=== PATIENT | male | born 1940 | race Caucasian/White ===

== ENCOUNTER 2016-08-09 11:36 | Inpatient (IN) ==
--- NOTE | 2016-08-09 12:03 | EKG Report ---
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
[2016-08-09 12:25] LABS: Basophils % 0.2 % (0.0-0.8); Eosinophils % 0.5 % (0.00-10.9); Hematocrit 42.3 VOL% (42.0-52.0); Hemoglobin 14.2 GM/DL (14.0-18.0); Immature Granulocytes % 0.2 %; Immature Granulocytes Absolute 0.02 #; Lymphocytes # 1.4 10*3/uL (1.4-4.0); Lymphocytes % 16.1 % (21.2-54.2); Mean Corpuscular HGB Conc 33.6 GM/DL (32-36); Mean Corpuscular Hemoglobin 31 PG (27-34); Mean Corpuscular Volume 90.8 FL (87-102); Mean Platelet Volume 9.7 FL (9.6-12.0); Monocytes # 0.7 10*3/uL (0.11-0.8); Neutrophils # 6.6 10*3/uL (1.4-7.4); Platelet Count 278 T/CUMM (130-400); Red Blood Count 4.66 MC/CUMM (3.8-5.5); Red Cell Distribution Width 12.7 % (9.3-17.3); White Blood Count 8.8 T/CUMM (4-12)
--- NOTE | 2016-08-09 12:38 | XRay Report ---
XR chest 2V Indication: Shortness of breath. Chest 2 views: Right shoulder hemiarthroplasty and scattered calcified granulomata are present. Heart size and mediastinal contour are normal. Lungs are hypoinflated but generally clear, except for minimal bibasilar atelectasis. Pleural spaces are clear. Bones are intact. Impression: Mild pulmonary hypoinflation with atelectasis. PROCEDURE INTERPRETED AT [facility] DEPARTMENT OF RADIOLOGY Final Report Signed by: Jose Kelly M.D.
[2016-08-09 13:00] LABS: Alanine Aminotransferase 14 U/L (16-61); Alkaline Phosphatase 58 U/L (45-117); Aspartate Amino Transferase 12 U/L (0-37); Blood Urea Nitrogen 52 MG/DL (7-18); Calcium 9.1 MG/DL (8.5-10.1); Glucose 98 MG/DL (74-106); Magnesium 1.9 MG/DL (1.8-2.4); Osmolality,Calculated 292.4 MOS/KG (273-304); Sodium 140 MMOL/L (136-145); Total Protein 7.5 G/DL (6.4-8.3); Troponin I Only < 0.015 NG/ML (0.00-0.045)
--- NOTE | 2016-08-09 13:36 | Emergency Department Note ---
Bao Shepherd Hilary, am scribing for, and in the presence of, Kishor Kang MD 12:02. Pearl Shepherd Phillip K, MD, personally performed the services described in this documentation, ascribed by Xuan Gore in my presence, and it is both accurate and complete [id number] . Arrival - Arrival Chief Complaint: Syncope Stated Complaint: poss [facility] ED Nursing Triage Note: Pt states that he is having chest pain onset near syncope onset approx 1030 - Mode of Arrival: Ambulatory Limitations: No Limitations Source: Patient, RN Notes Reviewed - History of Present Illness HPI Narrative: Pt is a 76 y/o white male presenting to the ED with c/o diaphoresis and near syncope which onset around 1030 today. 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 He confirms near syncope, and diaphoresis but denies SOB, Nausea or tightness in his chest. Pt also reports that he has chronic shoulder pain and for the past 3-4 days the pain has been radiating to his neck. Pt has a PMHx of HTN. Onset (ago): hour(s) Allergies/Adverse Reactions: Allergies Allergy/AdvReac Type Severity Reaction Status Date / Time No Known Allergies Allergy Unverified 08/09/16 11:41 Home Medications: Home Medications Medication Instructions Recorded Confirmed Type Allopurinol 300 mg PO DAILY 08/09/16 08/09/16 History Hydrocodone/Acetaminophen 1 each PO TID PRN MDD 3GM/24H APAP 08/09/16 08/09/16 History [Hydrocodon-Acetaminophn 10-325] Lisinopril 20 mg PO DAILY 08/09/16 08/09/16 History Omeprazole 20 mg PO DAILY 08/09/16 08/09/16 History Sulindac 200 mg PO BID 08/09/16 08/09/16 History Review of System - Review of System 12 point system: reviewed and no additional remarkable complaints except as stated - Review of System Constitutional: Present: diaphoresis, weakness. Absent: fever Respiratory: Absent: respiratory distress Cardiovascular: Present: syncope (near syncope). Absent: chest pain Gastrointestinal: Absent: nausea Musculoskeletal: Present: neck pain (secondary to shoulder pain (old injury)) Medical,Surgical,& Family Hx - Medical History Cardio: History of: Hypertension Rheumatology: History of;: Gout - Social History Smoking Status: Never smoker Frequency of Alcohol Use: None Type of Drug Use: None Exam Vital Signs: Vital Signs Temperature 97.1 F L 08/09/16 11:41 Pulse Rate 114 H 08/09/16 11:41 Respiratory Rate 20 08/09/16 11:41 Blood Pressure 131/99 08/09/16 11:41 O2 Sat by Pulse Oximetry 95 08/09/16 11:41 - General General appearance: alert, in no apparent distress - Head Head exam: Present: atraumatic, normocephalic - Eye Eye exam: Present: normal appearance, PERRL, EOMI - ENT ENT exam: Present: mucous membranes moist, TM's normal bilaterally. Absent: mucous membranes dry - Neck Neck exam: Present: full ROM, trachea midline. Absent: tenderness - Chest Chest inspection: Present: symmetric chest wall rise. Absent: tenderness - Respiratory Respiratory exam: Present: normal lung sounds bilaterally. Absent: respiratory distress - Cardiovascular Cardiovascular exam: Present: normal rhythm, tachycardia, normal heart sounds. Absent: murmur, rubs, gallop - Abdominal Exam Abdominal exam: Present: soft. Absent: distention, tenderness - Extremities Exam Extremities exam: Present: full ROM. Absent: tenderness, pedal edema - Back Exam Back exam: Present: full ROM. Absent: tenderness - Neurological Exam Neurological exam: Present: alert, oriented X3, CN II-XII intact. Absent: motor sensory deficit - Psychiatric Psychiatric exam: Present: normal affect, normal mood - Skin Skin exam: Present: warm, dry, intact, normal color. Absent: rash Course Course Narrative: Patient initially denied chest pain pressure or tightness however when he arrived she said he had a bad case of indigestion while this episode happened. On reexamination the patient does have some pain in the left anterior chest that he reports. We will give him a nitroglycerin sublingual, aspirin and Lovenox. We will also admit him for further evaluation of his heart. Results - Labs CBC & BMP: 08/09/16 12:09 08/09/16 12:09 Lab Results: I have reviewed the patients labs Labs: Laboratory Tests 08/09/16 12:09 WBC 8.8 RBC 4.66 Hgb 14.2 Hct 42.3 Neut % (Auto) 75.0 H Lymph % (Auto) 16.1 L - EKG EKG results: interpreted by ERMManuela (Sinus tachycardia) - Diagnostic Findings Procedure: Chest x-ray: report reviewed by me (Mild pulmonary hypoinflation with atelectasis) Disposition Clinical Impression: Near syncope, Dehydration, Chest pain, Rule out angina Case discussed with: patient Disposition: Still a Patient Condition: Guarded Additional Instructions: Admit to the hospitalist and consult cardiology.
[2016-08-09] MEDS ORDERED: NITROGLYCERIN SL 0.4 MG TABLET SL ONE ×2 (13:41→14:09)
[2016-08-09] MEDS ORDERED: ENOXAPARIN 100 MG/ML SYRINGE SUBCUT ONE ×2 (13:42→14:09)
[2016-08-09] MEDS ORDERED: ASPIRIN 325 MG TABLET ONE (13:42)
[2016-08-09] MEDS ORDERED: ONDANSETRON 4 MG/2 ML VIAL ONE (13:52)
[2016-08-09] MEDS ORDERED: ASPIRIN CHEW 81 MG TABLET PO ONE (14:09)
[2016-08-09] MEDS ORDERED: SODIUM CHLORIDE 0.9% 1,000 ML IV ONE (14:09)
[2016-08-09] MEDS ORDERED: ONDANSETRON 4 MG/2 ML VIAL IV ONE (14:09)
--- NOTE | 2016-08-09 14:55 | Hospitalist History & Physical ---
<Amor Hand - Last Filed: 08/09/16 16:08> Assessment and Plan - Time spent with patient Time spent with patient: Greater than 30 minutes (1) Near syncope Status: Acute Assessment and plan: Carotid Dopplers, echocardiogram, chest x-ray and EKG, cardiology consult. Repeat CBC and BMP. Current Visit: Yes (2) Dehydration Status: Acute Assessment and plan: Patient given 500 mg of normal saline in the ER. BUN/creatinine ratio 43. Will continue to hydrate and monitor BMP and BP. Current Visit: Yes (3) Chest pain Status: Acute Assessment and plan: Patient complained of "gnawing" chest pain while examined today. After 1 nitroglycerin tablet pain subsided. Patient will be admitted for further evaluation and treatment. Consult cardiology for possible stress test left heart cath. Current Visit: Yes (4) Hypertension Status: Acute Assessment and plan: Well-controlled on home meds. Continue to monitor Current Visit: Yes History of Present Illness Chief complaint: chest pain, near syncope, dehydration History of present illness: Mr. Ruelas is a 76 year old male past medical history significant for hypertension , gout and prostate cancer who presents to the emergency room with complaints of diaphoresis and near syncope at around 1030 this morning. 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 He also states that he "nearly passed out" but never lost consciousness. On admission, the patient' s exam was unremarkable, cardiac enzymes negative and initial EKG was unremarkable. On exam, patient did complain of a "gnawing" pain in his left chest. He was then given 0.4 mg of nitroglycerin and the pain subsided. However, the patient did become nauseated, spat up dark red emesis and became extremely diaphoretic. Repeat EKG revealed an abnormal rhythm with possible right bundle branch block. Chest x-ray revealed minimal bibasilar atelectasis. Case been discussed with Dr. Kang and Dr. Loco and is in agreement that the patient will be admitted to the hospital medicine service for further evaluation and treatment. We will consult cardiology for possible stress test or left heart cath. The patient is a full code. Home Medications Medication Instructions Recorded Confirmed Type Allopurinol 300 mg PO DAILY 08/09/16 08/09/16 History Hydrocodone/Acetaminophen 1 each PO TID PRN MDD 3GM/24H APAP 08/09/16 08/09/16 History [Hydrocodon-Acetaminophn 10-325] Lisinopril 20 mg PO DAILY 08/09/16 08/09/16 History Omeprazole 20 mg PO DAILY 08/09/16 08/09/16 History Sulindac 200 mg PO BID 08/09/16 08/09/16 History Allergies Allergy/AdvReac Type Severity Reaction Status Date / Time No Known Allergies Allergy Unverified 08/09/16 11:41 Medical,Surgical,& Family Hx - Medical History Cardio: History of: Hypertension Rheumatology: History of;: Gout - Social History Smoking Status: Never smoker Frequency of Alcohol Use: None Type of Drug Use: None - Constitutional Constitutional: Absent: chills, frequent falls, headache(s), weakness - EENT Eyes: Absent: blurry vision, loss of vision - Cardiovascular Cardiovascular: Present: chest pain at rest, diaphoresis. Absent: edema, radiating jaw, neck or arm pain, palpitations - Respiratory Respiratory: Absent: cough, hemoptysis, wheezing - Gastrointestinal Gastrointestinal: Present: change in bowel habits, loose stools, melena, nausea , vomiting. Absent: abdominal pain - Genitourinary Genitourinary: Absent: difficulty urinating, dysuria, flank pain - Musculoskeletal Musculoskeletal: Present: arthralgias, other (Chronic shoulder pain). Absent: back pain - Neurological Neurological: Present: other (Near syncope). Absent: abnormal gait, abnormal speech, confusion, paresthesias - Psychiatric Psychiatric: Absent: anxiety, depression - Endocrine Endocrine: Absent: cold intolerance, fatigue, heat intolerance - Hematologic/Lymphatic Hematologic/Lymphatic: Absent: easy bleeding, easy bruising Exam - Constitutional Exam: General appearance: Over weight, mild distress - Head Head exam: Present: normocephalic, atraumatic - Eye Eye exam: Present: EOMI. Absent: conjunctival injection, nystagmus Pupils: Present: FLACA, normal accommodation - ENT ENT exam: Present: normal exam, normal external ear exam - Neck Neck exam: Present: normal inspection. Absent: lymphadenopathy, tenderness, thyromegaly - Respiratory Respiratory exam: Present: clear to auscultation bilaterally. Absent: rales, rhonchi, wheezes - Cardiovascular Cardiovascular exam: Present: regular rate and rhythm. Absent: carotid bruit, gallop, rubs - GI/Abdominal GI/Abdominal exam: Present: normal bowel sounds. Absent: ascites, distended, mass - Extremities Exam Extremities exam: Present: normal inspection, normal capillary refill. Absent: edema - Back Exam Back exam: Absent: CVA tenderness (L), CVA tenderness (R) - Neurological Exam Neurological exam: Present: alert, oriented X3 - Psychiatric Psychiatric exam: Present: normal affect, normal mood - Skin Skin exam: Present: normal color, cool, diaphoretic Results - Labs CBC & BMP: 08/09/16 12:09 08/09/16 12:09 Lab Results: I have reviewed the past 24 hour labs - EKG EKG results: interpreted by BRIAN - Diagnostic Findings Procedure: Chest x-ray: image reviewed by me, report reviewed by me <Martin Loco - Last Filed: 08/09/16 20:33> Assessment and Plan - Time spent with patient Time spent with patient: Greater than 30 minutes (1) Upper gastrointestinal bleeding Status: Acute Assessment and plan: Consult GI. IV twice daily PPI. Repeat CBC in a.m. Guaiac stool. Current Visit: Yes (2) Near syncope Status: Acute Assessment and plan: Carotid ultrasound unremarkable. Check echo. Cardiology consult. Repeat a.m. labs. Hydrate with normal saline. Current Visit: Yes (3) Dehydration Status: Acute Current Visit: Yes (4) Chest pain Status: Acute Current Visit: Yes (5) Hypertension Status: Acute Assessment and plan: Continue home medications and add hydralazine as needed Current Visit: Yes Qualifiers: Hypertension type: essential hypertension Qualified Code(s): I10 - Essential (primary) hypertension History of Present Illness History of present illness: Mr. Ruelas is a 76 year old male presents to emergency department with near syncope and diaphoresis with accompanying left-sided chest pain. Patient gives a history of dark tarry stools over the last 24 hours 2-3 episodes. He also had an episode of bloody emesis in the emergency department. His BUN is elevated and he appears volume depleted. I feel the patient has an upper gastrointestinal bleed and will need GI evaluation. I have reduced his aspirin dose to 81 mg and started IV twice daily Protonix. Fluid resuscitation has been started and a repeat CBC has been ordered in the morning. I will consult Dr. Munoz and to hold the patient n.p.o. after midnight. I have personally seen and examined this patient today. I agree with the above note as prepared by the advanced practice provider. I agree with the assessment and plan. The patient was seen and examined in room 268 with his daughter at the bedside. I explained the differential diagnosis and workup plan. They verbalized their understanding and agreed to move forward. The patient's home medications were reviewed and reconciled. He is a full code. His daughter is his primary healthcare proxy. Medical,Surgical,& Family Hx - Medical History Genitourinary: History of: Prostate Problems (History of prostate cancer) - Surgical History Orthopedic Surgeries: Surgical HX of;: Orthopedic Surgery (Right shoulder surgery) - Family History Family History: Reports;: Family Hypertension - Social History Smoking Status: Never smoker Frequency of Alcohol Use: None Type of Drug Use: None Marital Status: Lives With:: Alone Functional capacity: independent ambulation 12 point system: reviewed and no additional remarkable complaints except as stated Exam - Constitutional Vitals: Period Temp Pulse Resp BP Sys/[place]illo Pulse Ox Last 24 Hr 96.2 F-98.4 F 91-115 16-20 131-187/81-99 97 Results - Labs CBC & BMP: 08/09/16 12:09 08/09/16 12:09 Lab Results: I have reviewed the past 24 hour labs
[2016-08-09] MEDS ORDERED: MORPHINE 2 MG/1 ML SYRINGE IV PRN (16:08)
[2016-08-09] MEDS ORDERED: ZALEPLON 5 MG CAPSULE PO PRN (16:08)
[2016-08-09] MEDS ORDERED: ONDANSETRON 4 MG/2 ML VIAL IV PRN (16:08)
[2016-08-09] MEDS ORDERED: MAGNESIUM SULF RIDER 2 GM in PREMIX 1 EACH IV PRN (16:08)
[2016-08-09] MEDS ORDERED: NITROGLYCERIN SL 0.4 MG TABLET SL PRN (16:08)
--- NOTE | 2016-08-09 16:18 | EKG Report ---
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
--- NOTE | 2016-08-09 16:28 | EKG Report ---
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
[2016-08-09] MEDS ORDERED: ASPIRIN EC 325 MG TABLET PO SCH (16:30)
[2016-08-09] MEDS ORDERED: ENOXAPARIN 40 MG/0.4 ML SYRINGE SUBCUT SCH (16:30)
[2016-08-09] MEDS ORDERED: hydrALAZINE 20 MG/1 ML VIAL IV ONE (16:45)
--- NOTE | 2016-08-09 17:14 | Ultrasound Report ---
Referring physician: Martin Loco Exam: Carotid ultrasound Date: August 09, 2016 Comparison: None Reason: Near syncope Technique: Duplex scan of the carotid arteries was performed using B-Mode/grayscale imaging and Doppler spectral analysis and color flow. Ultrasound images were captured and stored. Findings: There is mild calcified plaque at the carotid bifurcations and proximal cervical ICAs. The right ICA measures 0.59 cm in diameter, and the left ICA measures 0.58 cm in diameter. The peak systolic velocities are as follows: Right CCA: 78 cm/s Right proximal ICA: 57 cm/s Right distal ICA: 64 cm/s Right ECA: 51 cm/s Left CCA: 69 cm/s Left proximal ICA: 63 cm/s Left distal ICA: 65 cm/s Left ECA: 98 cm/s The peak systolic ICA/CCA velocity ratios are as follows: 0.8 on the right and 0.9 on the left. Antegrade flow is present within both vertebral arteries. Impression: 1. Less than 50% stenosis of both cervical internal carotid arteries. 2. The Society of Radiologists in Ultrasound consensus conference criteria was used. PROCEDURE INTERPRETED AT [facility] DEPARTMENT OF RADIOLOGY Final Report Signed by: Dr. Naseem Chiang
[2016-08-09 17:30] LABS: Risk Ratio 5.46; VLDL CHOLESTEROL 27.8 MG/DL
[2016-08-09] MEDS: ACETAMINOPHEN 325 MG TABLET PO PRN (18:33)
[2016-08-09] MEDS ORDERED: ALUM/MAG/SIMETH/LIDO VISC 1:1 30 ML BOTTLE PO PRN (20:25)
[2016-08-09] MEDS ORDERED: hydrALAZINE 20 MG/1 ML VIAL IV PRN (20:27)
[2016-08-09] MEDS ORDERED: SODIUM CHLORIDE 0.9% 250 ML IV ONE (20:28)
[2016-08-09] MEDS ORDERED: SODIUM CHLORIDE 0.9% 1,000 ML IV SCH (20:30)
[2016-08-09] MEDS: PANTOPRAZOLE 40 MG VIAL IV SCH (21:26)
[2016-08-10 06:02] LABS: Basophils % 0.3 % (0.0-0.8); Eosinophils % 0.5 % (0.00-10.9); Hemoglobin 11.5 GM/DL (14.0-18.0); Immature Granulocytes % 0.3 %; Immature Granulocytes Absolute 0.02 #; Lymphocytes # 1.6 10*3/uL (1.4-4.0); Lymphocytes % 21.3 % (21.2-54.2); Mean Corpuscular HGB Conc 33.8 GM/DL (32-36); Mean Corpuscular Hemoglobin 30 PG (27-34); Mean Corpuscular Volume 89.5 FL (87-102); Mean Platelet Volume 10.1 FL (9.6-12.0); Monocytes # 0.5 10*3/uL (0.11-0.8); Monocytes % 7.1 % (1.7-12.7); Neutrophils # 5.4 10*3/uL (1.4-7.4); Neutrophils % 70.5 % (38.7-73.9); Platelet Count 225 T/CUMM (130-400); White Blood Count 7.6 T/CUMM (4-12)
[2016-08-10 06:28] LABS: Magnesium 1.9 MG/DL (1.8-2.4); Osmolality,Calculated 287.3 MOS/KG (273-304); Potassium 4.4 MMOL/L (3.5-5.1)
--- NOTE | 2016-08-10 08:40 | Cardiology Consult Note ---
<Miguelina Matt E - Last Filed: 08/10/16 08:47> Assessment and Plan - Time spent with patient Time spent with patient: Greater than 30 minutes (1) Dyslipidemia Status: Chronic Assessment and plan: SEE PLAN OF CARE LISTED BELOW Current Visit: Yes (2) Sinus tachycardia Status: Acute Assessment and plan: SEE PLAN OF CARE LISTED BELOW Current Visit: Yes (3) Obesity Status: Chronic Assessment and plan: SEE PLAN OF CARE LISTED BELOW Current Visit: Yes (4) Chest pain Status: Resolved Assessment and plan: SEE PLAN OF CARE LISTED BELOW Current Visit: Yes (5) Hypertension Status: Chronic Assessment and plan: SEE PLAN OF CARE LISTED BELOW Current Visit: Yes Qualifiers: Hypertension type: essential hypertension Qualified Code(s): I10 - Essential (primary) hypertension (6) Near syncope Status: Resolved Assessment and plan: SEE PLAN OF CARE LISTED BELOW Current Visit: Yes (7) Upper gastrointestinal bleeding Status: Acute Assessment and plan: SEE PLAN OF CARE LISTED BELOW Current Visit: Yes History of Present Illness - Data of Consult Patient: new to practice Consult date: 08/10/16 Requesting Physician: Martin Loco - Consult Narrative Reason for consult: chest pain, pre-syncope History of present illness: DECKHAND: DR. MEYER Mr. Ruelas, 76WM, previously followed by Dr. Meyer approximately 5 years ago when he underwent stress testing and echocardiogram and received favorable results. He did not require follow-up. Risk factors include hypertension, dyslipidemia, obesity. Patient presented to the emergency department at [facility] last evening after experiencing lightheadedness, fatigue and chest pain while lifting a heavy car. Upon arrival to the ER, he was given nitroglycerin, he became nauseated and vomited red blood. He was transitioned to our telemetry unit overnight. Cardiac biomarkers are negative. EKG is unremarkable. He is normally very active and can perform his activities without chest pain, heaviness or tightness. Patient acknowledges that he has been having a "gnawing" sensation located in the mid and right upper abdominal area for several days. In retrospect, patient has had black tarry stools for approximately 3 days prior to arrival. His hemoglobin and hematocrit have dropped a bit overnight. During the night, he did have right upper abdominal discomfort. After walking around, this improved. At this point, I will consult gastroenterology to see the patient and keep him n.p.o. I will also verify that he is on a proton pump inhibitor. Patient did not denies the use of NSAIDs, BC powders or Goody's. He has never had prior history of GI bleed that he is aware of. He is having some sinus tachycardia and will follow this during hospital stay. May benefit from of note, patient does have a history of intolerance to statin drugs. He was recently prescribed a statin medication which caused body aching. He recently saw a nurse practitioner in a primary care facility and a medication has been ordered through the [facility] which is not a statin drug and he is awaiting the arrival of this medication. Carotid ultrasounds revealed no evidence of significant stenosis. Chest x-ray is unrevealing. Hold his Lovenox and aspirin at this point. He has had some mild tachycardia. I will decrease his lisinopril from 20 mg orally daily to 10 mg orally daily and add low-dose beta blockade. ASSESSMENT/PLAN: 1. NEAR-SYNCOPE - occurred when bending over. Carotid ultrasound negative, no arrhythmia noted. We will continue monitor accordingly. 2. CHEST PAIN - chest pain occurred after he was lifting a car. Walking around and improved the discomfort. Stretching resolved the discomfort. 3. HYPERTENSION - will adjust medications for better blood pressure control. I will add an echocardiogram today since he is having some sinus tachycardia and will verify that he has no significant structural abnormality 4. DYSLIPIDEMIA - at this point, I am not going to introduce a lipid-lowering agent. He has a plan in place with his primary care provider and is awaiting a recently ordered medication I suspect to be Zetia, he reports statin intolerance. 5. OBESITY - dietary counseling prior to discharge 6. MELENA AND HEMATEMESIS - consult gastroenterology. I personally spoke with SOO Gillis, this morning. 7. SINUS TACHYCARDIA - low-dose beta blockade. CC: Martin Loco MD - Home Medications and Allergies Home Medications: Home Medications Medication Instructions Recorded Confirmed Type Allopurinol 300 mg PO DAILY 08/09/16 08/09/16 History Hydrocodone/Acetaminophen 1 each PO TID PRN MDD 3GM/24H APAP 08/09/16 08/09/16 History [Hydrocodon-Acetaminophn 10-325] Lisinopril 20 mg PO DAILY 08/09/16 08/09/16 History Omeprazole 20 mg PO DAILY 08/09/16 08/09/16 History Sulindac 200 mg PO BID 08/09/16 08/09/16 History Allergies/Adverse Reactions: Allergies Allergy/AdvReac Type Severity Reaction Status Date / Time No Known Allergies Allergy Unverified 08/09/16 11:41 Review of systems: REVIEW OF SYSTEMS: See HPI - Constitutional Constitutional: Present: Fatigue. Absent: syncope, anorexia, night sweats - EENT Eyes: Absent: blurry vision, loss of vision, diplopia Ears: Absent: decreased hearing, ear pain, ear discharge - Cardiovascular Cardiovascular: Present: chest pain with heavy lifting, improved with stretching. Denies dyspnea on exertion, edema, palpitations. Absent: chest pain with deep breath, claudication - Respiratory Respiratory: Denies: SHAY, cough. Absent: wheezing, hemoptysis, change in phlegm color - Gastrointestinal Gastrointestinal: Denies: constipation. See HPI. Recent hematemesis and melena. Gnawing sensation - Genitourinary Genitourinary: Absent: difficulty urinating, dysuria, urinary hesitancy, flank pain - Musculoskeletal Musculoskeletal: Present: back pain Absent: joint swelling, muscle cramps, muscle weakness - Neurological Neurological: Present: normal gait without frequent falls. Absent: dizziness, hemiparesis - Psychiatric Psychiatric: Absent: anxiety, depression, difficulty concentrating - Endocrine Endocrine: Present: fatigue. Absent: cold intolerance, heat intolerance, polyuria, polyphagia, polydipsia - Hematologic/Lymphatic Hematologic/Lymphatic: Present: easy bruising. Absent: easy bleeding -Integumentary Integumentary: Absent: lesions, rashes, skin breakdown Medical,Surgical,& Family Hx - Medical History Cardio: History of: Hypertension No history of: CAD, [place] Endocrine: History of: Dyslipidemia No history of: Diabetes Mellitus (NIDDM) Rheumatology: History of;: Gout, Rheumatoid Arthritis Genitourinary: History of: Kidney Stones (several years ago), Prostate Problems (History of prostate cancer) Musculoskeletal: History of: Musculoskeletal Problems (pt states he has back problems) - Surgical History Orthopedic Surgeries: Surgical HX of;: Orthopedic Surgery (Right shoulder surgery) - Family History Family History: Reports;: Family Hypertension Comment Only: Additional Family History (dad had open heart surgery) - Social History Smoking Status: Never smoker Have you smoked in the last 12 months: No Frequency of Alcohol Use: None Type of Drug Use: None Physical Examination Vital Signs Temp Pulse Resp BP Pulse Ox 97.1 F L 114 H 20 131/99 95 08/09/16 11:41 08/09/16 11:41 08/09/16 11:41 08/09/16 11:41 08/09/16 11:41 General: [Appears well with no apparent distress.] [Pleasant and cooperative. ] [Appears comfortable.] HEENT: [PERRL, normocephalic, atraumatic. Mucous membranes moist. No jaundice noted. Conjunctiva moist and clear, sclerae anicteric] Neck: No JVD/HJR, no thyromegaly or lymphadenopathy noted. No carotid bruit appreciated Cardiac: [Tachycardia rate, regular rhythm. ] [No murmur rub or gallop.] Lungs: [Clear to auscultation without accessory muscle use to assist the respiratory pattern.] Not requiring oxygen Abdomen: Soft, bowel sounds normoactive. Nontender and nondistended. No abdominal bruit or thrill noted. No masses noted. Musculoskeletal: No fluid collection. Decreased range of motion is noted. Extremities: No clubbing, cyanosis noted. [ No edema noted.] Upper extremity pulses 2+. Lower extremity pulses 2+. Capillary refill less than 3 seconds. Skin: No unusual lesions or rashes. No skin breakdown appreciated. Neuro: Awake, alert and oriented 3. Moves all extremities well without hemiparesis or paralysis. No essential tremor is appreciated. Result/EKG - Labs CBC & BMP: 08/10/16 04:47 08/10/16 04:47 Lab Results: I have reviewed the past 24 hour labs Labs: Laboratory Results - last 24 hr 08/09/16 08/09/16 08/09/16 16:29 16:29 19:22 WBC RBC Hgb Hct MCV MCH MCHC RDW Plt Count MPV Neut % (Auto) Lymph % (Auto) Pierce % (Auto) Eos % (Auto) Baso % (Auto) Neut # (Auto) Lymph # (Auto) Pierce # (Auto) Eos # (Auto) Baso # (Auto) Immature Gran % Nucleated RBC % Immature Gran # Nucleated RBCs # Sodium Potassium Chloride Carbon Dioxide Anion Gap BUN Creatinine GFR Calculation BUN/Creatinine Ratio Glucose Calculated Osmolality Calcium Magnesium Troponin I < 0.015 < 0.015 Triglycerides 139 Cholesterol 202 H LDL Cholesterol 134.0 VLDL Cholesterol 27.8 HDL Cholesterol 37 L Heart Disease Risk Ratio 5.46 08/09/16 08/10/16 08/10/16 22:00 04:47 04:47 WBC 7.6 RBC 3.80 Hgb 11.5 L D Hct 34.0 L MCV 89.5 MCH 30 MCHC 33.8 RDW 13.0 Plt Count 225 MPV 10.1 Neut % (Auto) 70.5 Lymph % (Auto) 21.3 Pierce % (Auto) 7.1 Eos % (Auto) 0.5 Baso % (Auto) 0.3 Neut # (Auto) 5.4 Lymph # (Auto) 1.6 Pierce # (Auto) 0.5 Eos # (Auto) 0.0 Baso # (Auto) 0.0 Immature Gran % 0.3 Nucleated RBC % 0.0 Immature Gran # 0.02 Nucleated RBCs # 0.00 Sodium 141 Potassium 4.4 Chloride 109 H Carbon Dioxide 24 Anion Gap 12.4 BUN 33 H D Creatinine 0.80 GFR Calculation 106 BUN/Creatinine Ratio 41.00 H Glucose 97 Calculated Osmolality 287.3 Calcium 8.0 L Magnesium 1.9 Troponin I < 0.015 Triglycerides Cholesterol LDL Cholesterol VLDL Cholesterol HDL Cholesterol Heart Disease Risk Ratio - Diagnostic Findings Procedure: Chest x-ray: report reviewed by me - EKG EKG results: interpreted by co EKG shows: tachycardia <Jose Wilson - Last Filed: 08/10/16 14:49> History of Present Illness - Consult Narrative History of present illness: Patient was personally interviewed and examined and chart reviewed. The family is in the room. Discussed the case with Miguelina aMtt NP. I agree with the assessment and evaluation and plan. Summation addition Mr. Ruelas is a 76 year old male who developed symptomatology after lifting on a car. His symptomatology of chest pain and sensations were certainly very noncardiac. His ECG stable without acute changes in his troponins are nondetectable 3. At the time of this dictation the patient is actually already had a EGD after having hematemesis. He was found to have peptic ulcer disease as the source of his bleeding. He apparently had 2 kissing ulcers in the greater curvature and lesser curvature of the distal antrum. He will be aggressively treated by GI. He had a postprocedure ECG curette was unremarkable. There is no acute changes. He was having just nonspecific complaints but no chest pain after his endoscopy. Certainly his symptomatology his findings are not consistent with a any kind of acute cardiac event and does not clinically or historically have ongoing cardiac disease at this time. Certainly his GI issues that are acute or being addressed and we need no further cardiac evaluation at this time. We will look in on the patient tomorrow but do not recommend any further evaluation at this time. CC: Martin Loco MD Physical Examination Vital Signs Temp Pulse Resp BP Pulse Ox 97.1 F L 114 H 20 131/99 95 08/09/16 11:41 08/09/16 11:41 08/09/16 11:41 08/09/16 11:41 08/09/16 11:41 Result/EKG - Labs CBC & BMP: 08/10/16 13:34 08/10/16 04:47 Labs: Laboratory Results - last 24 hr 08/09/16 08/09/16 08/09/16 16:29 16:29 19:22 WBC RBC Hgb Hct MCV MCH MCHC RDW Plt Count MPV Neut % (Auto) Lymph % (Auto) Pierce % (Auto) Eos % (Auto) Baso % (Auto) Neut # (Auto) Lymph # (Auto) Pierce # (Auto) Eos # (Auto) Baso # (Auto) Immature Gran % Nucleated RBC % Immature Gran # Nucleated RBCs # Sodium Potassium Chloride Carbon Dioxide Anion Gap BUN Creatinine GFR Calculation BUN/Creatinine Ratio Glucose POC Glucose Calculated Osmolality Calcium Magnesium Troponin I < 0.015 < 0.015 Triglycerides 139 Cholesterol 202 H LDL Cholesterol 134.0 VLDL Cholesterol 27.8 HDL Cholesterol 37 L Heart Disease Risk Ratio 5.46 08/09/16 08/10/16 08/10/16 22:00 04:47 04:47 WBC 7.6 RBC 3.80 Hgb 11.5 L D Hct 34.0 L MCV 89.5 MCH 30 MCHC 33.8 RDW 13.0 Plt Count 225 MPV 10.1 Neut % (Auto) 70.5 Lymph % (Auto) 21.3 Pierce % (Auto) 7.1 Eos % (Auto) 0.5 Baso % (Auto) 0.3 Neut # (Auto) 5.4 Lymph # (Auto) 1.6 Pierce # (Auto) 0.5 Eos # (Auto) 0.0 Baso # (Auto) 0.0 Immature Gran % 0.3 Nucleated RBC % 0.0 Immature Gran # 0.02 Nucleated RBCs # 0.00 Sodium 141 Potassium 4.4 Chloride 109 H Carbon Dioxide 24 Anion Gap 12.4 BUN 33 H D Creatinine 0.80 GFR Calculation 106 BUN/Creatinine Ratio 41.00 H Glucose 97 POC Glucose Calculated Osmolality 287.3 Calcium 8.0 L Magnesium 1.9 Troponin I < 0.015 Triglycerides Cholesterol LDL Cholesterol VLDL Cholesterol HDL Cholesterol Heart Disease Risk Ratio 08/10/16 08/10/16 08/10/16 13:34 14:01 14:09 WBC RBC Hgb 11.3 L Hct 34.5 L MCV MCH MCHC RDW Plt Count MPV Neut % (Auto) Lymph % (Auto) Pierce % (Auto) Eos % (Auto) Baso % (Auto) Neut # (Auto) Lymph # (Auto) Pierce # (Auto) Eos # (Auto) Baso # (Auto) Immature Gran % Nucleated RBC % Immature Gran # Nucleated RBCs # Sodium Potassium Chloride Carbon Dioxide Anion Gap BUN Creatinine GFR Calculation BUN/Creatinine Ratio Glucose POC Glucose 169 H 172 H Calculated Osmolality Calcium Magnesium Troponin I Triglycerides Cholesterol LDL Cholesterol VLDL Cholesterol HDL Cholesterol Heart Disease Risk Ratio
[2016-08-10] MEDS ORDERED: ASPIRIN EC 81 MG TABLET PO SCH (09:00)
[2016-08-10] MEDS ORDERED: PANTOPRAZOLE 40 MG TABLET PO SCH (09:00)
[2016-08-10] MEDS ORDERED: LISINOPRIL 20 MG TABLET PO SCH (09:00)
--- NOTE | 2016-08-10 09:19 | Gastrointestinal Consult Note ---
<Jigna Gotti - Last Filed: 08/10/16 09:14> Assessment and Plan (1) Melena Status: Acute Assessment and plan: 08/10-2 day history of dark runny watery stools with associated epigastric pain and nausea and vomiting with reports of hematemesis in the emergency room. Drop in hemoglobin from 14-11 since admission. Plan for EGD today to further evaluate. Plan an addendum to follow by Dr. Alexander llanes Current Visit: Yes History of Present Illness Chief complaint: Melena, hematemesis History of present illness: Mr. Ruelas is a 76 year old male who presented to the hospital with onset of atypical chest pain, melena and fatigue. Patient states that Saturday night he was woke up in the middle the night with urge to use the bathroom. He states that he noted at that time that he had loose stools that were dark black in color. He went back to bed and was awakened not long after that again with another episode of dark black runny stools. He was not feeling that well on yesterday however he got up and went to work anyway he states that while at work he began having a sensation in his mid upper abdomen that was a burning sensation as well as some feeling of heaviness with some sharp pains in his chest area. He also experienced some diaphoresis and some dizziness along with this. He was brought to the emergency room and during this time he became nauseated and began vomiting up dark red blood which was witnessed by ER staff. Patient was then admitted to the hospital for further workup. He has been evaluated by cardiology however this time is felt to be noncardiac related. Patient states that he has had no recent weight loss, fever or chills. He denies any dysphagia or odynophagia. States that he has had this gnawing sensation in his epigastric area off and on for several days. Denies a prior history of PUD and has never had endoscopy in the past. Patient states that he does not typically have reflux however has had that sensation of acid in the back of his mouth and throat the last several days. He denies any NSAID use. States that he takes [place] and aspirin on a daily basis. On admission hemoglobin was noted at 14 and is now down today at 11. He is hemodynamically stable. BUN/creatinine ratio is noted to be up at 41 Home Medications Medication Instructions Recorded Confirmed Type Allopurinol 300 mg PO DAILY 08/09/16 08/09/16 History Hydrocodone/Acetaminophen 1 each PO TID PRN MDD 3GM/24H APAP 08/09/16 08/09/16 History [Hydrocodon-Acetaminophn 10-325] Lisinopril 20 mg PO DAILY 08/09/16 08/09/16 History Omeprazole 20 mg PO DAILY 08/09/16 08/09/16 History Sulindac 200 mg PO BID 08/09/16 08/09/16 History Allergies Allergy/AdvReac Type Severity Reaction Status Date / Time No Known Allergies Allergy Unverified 08/09/16 11:41 Medical,Surgical,& Family Hx - Medical History Cardio: History of: Hypertension No history of: CAD, [place] Endocrine: History of: Dyslipidemia No history of: Diabetes Mellitus (NIDDM) Rheumatology: History of;: Gout, Rheumatoid Arthritis Genitourinary: History of: Kidney Stones (several years ago), Prostate Problems (History of prostate cancer) Musculoskeletal: History of: Musculoskeletal Problems (pt states he has back problems) - Surgical History Orthopedic Surgeries: Surgical HX of;: Orthopedic Surgery (Right shoulder surgery) - Family History Family History: Reports;: Family Hypertension Comment Only: Additional Family History (dad had open heart surgery) - Social History Smoking Status: Never smoker Frequency of Alcohol Use: None Type of Drug Use: None 12 point system: reviewed and no additional remarkable complaints except as stated - Constitutional Constitutional: Present: as per HPI - EENT Eyes: Present: as per HPI Ears: Present: as per HPI Nose, mouth and throat: Present: as per HPI - Cardiovascular Cardiovascular: Present: as per HPI - Respiratory Respiratory: Present: as per HPI - Gastrointestinal Gastrointestinal: Present: as per HPI, abdominal pain, hematemesis, loose stools , melena, nausea, vomiting - Genitourinary Genitourinary: Present: as per HPI - Musculoskeletal Musculoskeletal: Present: as per HPI, arthralgias - Neurological Neurological: Present: as per HPI - Psychiatric Psychiatric: Present: as per HPI - Endocrine Endocrine: Present: as per HPI - Hematologic/Lymphatic Hematologic/Lymphatic: Present: as per HPI Exam - Constitutional Vitals: Period Temp Pulse Resp BP Sys/Portillo Pulse Ox Last 24 Hr 96.2 F-98.4 F 91-115 16-20 131-187/81-99 95-97 General appearance: normal weight, no acute distress - Head Head exam: Present: normal inspection, normocephalic - Eye Eye exam: Present: other (Lids and conjunctivae unremarkable). Absent: scleral icterus - ENT ENT exam: Present: normal exam, normal oropharynx - Neck Neck exam: Present: normal inspection - Respiratory Respiratory exam: Present: clear to auscultation bilaterally. Absent: rales, rhonchi, wheezes - Cardiovascular Cardiovascular exam: Present: regular rate and rhythm. Absent: diastolic murmur , JVD, systolic murmur - GI/Abdominal GI/Abdominal exam: Present: normal bowel sounds, soft. Absent: ascites, distended, mass, organomegaly, tenderness - Extremities Exam Extremities exam: Present: normal inspection, full ROM - Back Exam Back exam: Present: normal inspection - Neurological Exam Neurological exam: Present: alert, oriented X3 - Psychiatric Psychiatric exam: Present: normal affect, normal mood - Skin Skin exam: Present: normal color, warm, dry Results - Labs CBC & BMP: 08/10/16 04:47 08/10/16 04:47 Lab Results: I have reviewed the past 24 hour labs <Jonathon Munoz - Last Filed: 08/10/16 12:55> History of Present Illness Chief complaint: 3030 History of present illness: Mr. Ruelas is a 76 year old male Exam - Constitutional Vitals: Period Temp Pulse Resp BP Sys/Portillo Pulse Ox Last 24 Hr 96.2 F-98.4 F 91-115 16-20 131-187/81-99 95-97 Results - Labs CBC & BMP: 08/10/16 04:47 08/10/16 04:47
[2016-08-10] MEDS: PANTOPRAZOLE 40 MG VIAL IV SCH ×2 (09:39→21:39)
[2016-08-10] MEDS: CARVEDILOL 6.25 MG TABLET PO SCH ×2 (09:41→21:39)
--- NOTE | 2016-08-10 10:38 | Hospitalist Progress Note ---
Assessment and Plan - Time spent with patient Time spent with patient: Less than 30 minutes (1) Near syncope Status: Resolved Assessment and plan: 76-year-old active white male admitted by hospital medicine on 08/09/2016 with near syncope, chest pain, and hematemesis. TANG JenkinsP has seen patient this morning as well as SOO Gillis for GI. Patient's case been discussed with Dr. Loco and further recommendations to follow. Near syncope--carotid ultrasound is negative, no arrhythmias noted. Cardiology is following Chest pain--patient still has some chest pain in supine position. Echocardiogram is pending. Serial troponins are negative. Cardiology is following Hypertension--Miguelina FARAH has adjusted his hypertensive medicines for better blood pressure control. She did start a low-dose beta-buddy for his sinus tachycardia. Dyslipidemia--patient does have a statin intolerance and his primary care provider is providing him with another medication that has yet to come in the mail. So we will defer this to his primary care physician. Melena and hematemesis--SOO Gillis for GI has seen patient. Patient's hematocrit has dropped from 42-34 since admission. He has only received gentle hydration. Dr. Munoz to do EGD today. Patient is n.p.o. Obesity--consult dietary if not already done Current Visit: Yes (2) Chest pain Status: Resolved Current Visit: Yes (3) Hypertension Status: Chronic Current Visit: Yes Qualifiers: Hypertension type: essential hypertension Qualified Code(s): I10 - Essential (primary) hypertension (4) Upper gastrointestinal bleeding Status: Acute Current Visit: Yes (5) Dyslipidemia Status: Chronic Current Visit: Yes (6) Sinus tachycardia Status: Acute Current Visit: Yes (7) Obesity Status: Chronic Current Visit: Yes Hospitalist: Subjective Interval history: Patient feels a little better this morning. He is missing his coffee since he is n.p.o. Cardiology and gastroenterology have seen patient. He is supposed to have EGD today by Dr. Munoz. Patient has had no further hematemesis. He states he does have some discomfort in the left chest when lying down. Exam - Constitutional Vitals: Period Temp Pulse Resp BP Sys/Portillo Pulse Ox Last 24 Hr 96.2 F-98.4 F 91-115 16-20 131-187/81-99 95-97 Exam: 76-year-old white male, no acute distress, alert and oriented Chest clear CV tachycardia but regular Abdomen protuberant, nontender Extremities no edema Results - Labs CBC & BMP: 08/10/16 04:47 08/10/16 04:47 Lab Results: I have reviewed the past 24 hour labs - EKG EKG shows: tachycardia - Impressions Right bundle branch block
[2016-08-10] MEDS ORDERED: PROPOFOL 200 MG/20 ML VIAL IV ONE (12:15)
[2016-08-10] MEDS ORDERED: LIDOCAINE 1% 5 ML VIAL ONE (12:15)
--- NOTE | 2016-08-10 13:07 | Anesthesia Post-Op ---
Anesthesia Post OP - Post Ansesthetic Evaluation Patient seen in post op: Yes Resp: within normal limits CV: within normal limits Mental: within normal limits Temp: within normal limits [id number]: within normal limits Nausea and Vomiting: within normal limits Pain: within normal limits
--- NOTE | 2016-08-10 13:07 | Operative Note ---
Date of procedure: 08/10/16 Pre-op diagnosis: Acute GI bleed with history of nonsteroidal use Procedure: EGD with control of bleeding 76-year-old gentleman with nonsteroidal use now with acute hematemesis upper GI bleeding for EGD to further evaluate. Informed consent was obtained for the patient. He was sedated with MAC anesthesia per anesthesia protocol patient placed in left lateral decubitus position the Olympus flexible video upper endoscope inserted oral cavity under direct vision the esophagus intubated. Findings: Esophagus-normal proximal mid esophageal mucosa distal esophagus with moderate hiatal hernia and esophageal stricture no significant esophagitis no varices no Ramires's seen. This appears to be clinically asymptomatic. Stomach-normal insufflation old blood present in the stomach. In the prepyloric antrum there is a densely adherent clot. Remaining stomach is normal to direct retroflexed views of the body fundus cardia of the stomach. Pylorus-normal Duodenum-clot present but no mucosal abnormalities noted throughout the duodenum from the bulb and duodenum to the third portion of the duodenum. He does have a periampullary diverticulum. Scope was withdrawn back to the dense clot at the prepyloric antrum. With washing and aspiration the clot was removed revealing the presence of 2 kissing ulcers one on the greater curvature one on the lesser curvature in the distal antrum. The greater curvature ulcer measures approximately 6 mm and has an active visible arterial blood vessel. The lesser ulcer is about 5 mm and does not appear to be active bleeding at this time. It was elected to proceed with epinephrine sclerotherapy and 8 cc were injected radially and of the bleeding artery. 2 cc were also placed into the lesser curvature ulceration. Subsequently heater probe coagulation of the visible vessel was accomplished with good hemostasis. Following this a total of 3 instinct clips were placed over the greater curvature ulcer with obliteration of the ulcer defect. 2 clips were placed over the lesser curvature ulcer again with good obliteration. Adequate hemostasis was achieved prior to discontinuation of the procedure. Scope was removed aspirating the remaining fluid from the stomach. Patient our procedure well his discharge recovery in good condition. Postop diagnosis: 1. Acute peptic ulcer disease likely secondary to nonsteroidal use now with maximal endoscopic therapy. Would continue with IV proton pump inhibitor treatment and monitor H&H. If significant rebleeding appears to develop this likely will need surgical treatment. Discontinuation of nonsteroidals. 2. Gastroesophageal reflux disease-continue PPI treatment and antireflux precautions 3. Esophageal stricture dilateif symptoms develop. Anesthesia: MAC Surgeon / Physician: Jonathon Munoz Estimated blood loss: none Specimens: none sent Condition: stable Disposition: post procedure unit Results - Labs CBC & BMP: 08/10/16 04:47 08/10/16 04:47 Discharge Plan - Discharge Medications No Action Lisinopril 20 mg PO DAILY Hydrocodone/Acetaminophen [Hydrocodon-Acetaminophn 10-325] 1 each PO TID PRN MDD 3GM/24H APAP PRN Reason: Pain Sulindac 200 mg PO BID Omeprazole 20 mg PO DAILY Allopurinol 300 mg PO DAILY - Follow Up or Referral - Forms/Instructions
[2016-08-10] MEDS ORDERED: ONDANSETRON 4 MG/2 ML VIAL ONE ×2 (13:12→13:44)
[2016-08-10 13:39] LABS: Hematocrit 34.5 VOL% (42.0-52.0); Hemoglobin 11.3 GM/DL (14.0-18.0)
[2016-08-10] MEDS ORDERED: ONDANSETRON 4 MG/2 ML VIAL IV ONE (13:48)
--- NOTE | 2016-08-10 15:23 | XRay Report ---
XR chest 2V Indication: Shortness of breath Comparison: 09 Aug 2016 Findings: The heart and mediastinum are normal in size and configuration. The pulmonary vascularity is normal in caliber. Small amount of left lower lung increased density is present. No other lung infiltrates, effusions, pneumothorax or other abnormality is demonstrated. Impression: Small amount of left lower lung increased density, may indicate infiltrate or atelectasis. PROCEDURE INTERPRETED AT [facility] DEPARTMENT OF RADIOLOGY Final Report Signed by: Dr. Brent Sutton
[2016-08-10 15:39] LABS: Troponin I Only < 0.015 NG/ML (0.00-0.045)
[2016-08-10] MEDS ORDERED: SODIUM CHLORIDE 0.9% 1,000 ML IV ONE ×2 (18:09→18:43)
[2016-08-10] MEDS ORDERED: SODIUM CHLORIDE 0.9% 250 ML IV PRN (18:26)
--- NOTE | 2016-08-10 18:36 | ECHO Report ---
Jose Martin Ruelas Exam Date: 08/10/2016 10:26 Referring Physician: Technologist: Zeny Munson LRCP Age: 76 Ht (in): 70 Wt (lb): 198 Gender: M Exam Location: [facility] Echo Indications: near syncope, dehydration, chest pain, HTN, upper Gastro. bleeding BP: 160 / 93 HR: 101 Rhythm: Sinus Technical Quality: Technically difficult study IMPRESSIONS 1. Left ventricle is normal size systolic function ejection fraction 60+%. At least mild concentric left ventricular hypertrophy. 2. Other cardiac chambers are normal size. 3. Trace aortic insufficiency. 4. Trace to mild tricuspid regurgitation. 5. No evidence of elevated right-sided pressures. MEASUREMENTS (Male / Female) Normal Values 2D ECHO LV Diastolic Diameter PLAX 3.8 cm 4.2 - 5.9 / 3.9 - 5.3 cm LV Systolic Diameter PLAX 2.8 cm LV Fractional Shortening PLAX 25.6 % IVS Diastolic Thickness 1.8 cm 0.6 - 1.0 / 0.6 - 0.9 cm LVPW Diastolic Thickness 1.6 cm 0.6 - 1.0 / 0.6 - 0.9 cm RV Internal Dim ED PLAX 2.8 cm Aortic Root Diameter 2.5 cm LA Systolic Diameter LX 3.6 cm 3.0 - 4.0 / 2.7 - 3.8 cm DOPPLER TR Peak Velocity 187.0 cm/s TR Peak Gradient 14.0 mmHg FINDINGS Left Ventricle Left ventricle is normal size and systolic function with an ejection fraction of 60% plus. There is at least mild concentric left ventricular hypertrophy. Right Ventricle Normal right ventricular size. Right Atrium Normal right atrial size. Left Atrium Normal left atrial size. Mitral Valve Mild mitral valve sclerosis. Trace mitral valve regurgitation. Aortic Valve Aortic valve sclerosis. Trace aortic valve regurgitation. Tricuspid Valve Morphologically normal tricuspid valve. Trace to mild tricuspid valve regurgitation. Tricuspid regurgitation velocities suggest a PAP 19-24 mmHg. Pulmonic Valve Pulmonic valve not well visualized. Pericardium No pericardial effusion. Aorta Normal size aortic root and proximal ascending aorta. Jose Wilson MD (Electronically Signed) Final Date: 10 Aug 2016 18:35
[2016-08-10 18:48] LABS: Hemoglobin 11.3 GM/DL (14.0-18.0)
--- NOTE | 2016-08-10 18:53 | XRay Report ---
XR KUB Indication: Gastrointestinal hemorrhage Comparison: None available Findings: No free fluid or free air seen. The bowel gas pattern appears within normal limits. No abnormal calcifications are present. Clips are present from previous surgery. Calculi present in the gallbladder. No other abnormality is identified. Impression: Cholelithiasis. Previous surgery. No other abnormality seen. PROCEDURE INTERPRETED AT [facility] DEPARTMENT OF RADIOLOGY Final Report Signed by: Dr. Brent Sutton
[2016-08-10] MEDS: ACETAMINOPHEN 325 MG TABLET PO PRN (19:14)
[2016-08-10] MEDS: LEVOFLOXACIN INJ 750 MG in PREMIX 1 EACH IV SCH (19:15)
[2016-08-10] MEDS: SUCRALFATE 1 GM TABLET PO SCH ×2 (19:34→21:39)
[2016-08-10] MEDS: LISINOPRIL 10 MG TABLET PO SCH (19:35)
[2016-08-10] MEDS: SODIUM CHLORIDE 0.9% 1,000 ML IV SCH (21:39)
[2016-08-11 01:30] LABS: Hematocrit 26.9 VOL% (42.0-52.0); Hemoglobin 9.2 GM/DL (14.0-18.0)
[2016-08-11 05:45] LABS: Basophils % 0.1 % (0.0-0.8); Eosinophils % 0.1 % (0.00-10.9); Hematocrit 28.2 VOL% (42.0-52.0); Hemoglobin 9.5 GM/DL (14.0-18.0); Immature Granulocytes % 0.5 %; Immature Granulocytes Absolute 0.05 #; Lymphocytes # 1.6 10*3/uL (1.4-4.0); Lymphocytes % 14.6 % (21.2-54.2); Mean Corpuscular HGB Conc 33.7 GM/DL (32-36); Mean Corpuscular Hemoglobin 30 PG (27-34); Mean Corpuscular Volume 89.5 FL (87-102); Monocytes # 0.7 10*3/uL (0.11-0.8); Monocytes % 6.1 % (1.7-12.7); Neutrophils # 8.5 10*3/uL (1.4-7.4); Neutrophils % 78.6 % (38.7-73.9); Platelet Count 193 T/CUMM (130-400); Red Blood Count 3.15 MC/CUMM (3.8-5.5); Red Cell Distribution Width 13.1 % (9.3-17.3); White Blood Count 10.8 T/CUMM (4-12)
[2016-08-11 06:12] LABS: Calcium 7.8 MG/DL (8.5-10.1); Magnesium 1.8 MG/DL (1.8-2.4); Osmolality,Calculated 285.3 MOS/KG (273-304)
--- NOTE | 2016-08-11 07:15 | Cardiology Progress Note ---
Assessment and Plan (1) Chest pain Status: Resolved Assessment and plan: This is noncardiac and we will sign off at this time. Current Visit: Yes (2) Upper gastrointestinal bleeding Status: Acute Assessment and plan: Follwed by Gi medicine and primary service. Current Visit: Yes Cardiology - PN: Subj Interval history: Patient is ICU moved down post EGD because apparently was not feeling well. Cardiac jackson so is stable and has had no issues. He has had no chest pain. His cardiac enzymes were normal. His symptomatology did not sound cardiac to begin with. His echocardiogram is unremarkable and his telemetry has been stable in ICU. He has no findings of cardiac issues. At this time we recommend no further evaluation. At this time we will sign off. Please let us know if we can be further service. Exam (Progress Note) - Constitutional Vitals: Period Temp Pulse Resp BP Sys/Portillo Pulse Ox Last 24 Hr 97.6 F-101.2 F 93-127 12-26 89-194/51-116 92-99 Exam: General appearance: normal weight, no acute distress, who is sitting up in a chair. HEENT exam: normal inspection, atraumatic Neck exam: normal inspection no JVD. No carotid bruit. Trachea is in midline Respiratory/lungs exam: clear to auscultation bilaterally good air movement. Cardiovascular exam: regular rate and rhythm, no murmur or gallop or rub. No precordial lift. Chest wall exam: nontender GI/Abdominal exam: normal bowel sounds, soft, nontender. Extremeties/musculoskeletal: normal inspection without edema or cyanosis. Neurological exam: alert, oriented X3, no focal deficits Psychiatric exam: normal affect, normal mood. Cognitive function is grossly normal. Skin exam: normal color, warm Result/EKG - Labs CBC & BMP: 08/11/16 04:56 08/11/16 04:56 Lab Results: I have reviewed the past 24 hour labs Labs: Laboratory Results - last 24 hr 08/10/16 08/10/16 08/10/16 13:34 14:01 14:09 WBC RBC Hgb 11.3 L Hct 34.5 L MCV MCH MCHC RDW Plt Count MPV Neut % (Auto) Lymph % (Auto) [place] % (Auto) Eos % (Auto) Baso % (Auto) Neut # (Auto) Lymph # (Auto) [place] # (Auto) Eos # (Auto) Baso # (Auto) Immature Gran % Nucleated RBC % Immature Gran # Nucleated RBCs # Sodium Potassium Chloride Carbon Dioxide Anion Gap BUN Creatinine GFR Calculation BUN/Creatinine Ratio Glucose POC Glucose 169 H 172 H Calculated Osmolality Calcium Magnesium Total Creatine Kinase CK-MB (CK-2) Troponin I Blood Type Antibody Screen Crossmatch 08/10/16 08/10/16 08/10/16 15:00 18:39 18:41 WBC RBC Hgb 11.3 L Hct 33.0 L MCV MCH MCHC RDW Plt Count MPV Neut % (Auto) Lymph % (Auto) [place] % (Auto) Eos % (Auto) Baso % (Auto) Neut # (Auto) Lymph # (Auto) [place] # (Auto) Eos # (Auto) Baso # (Auto) Immature Gran % Nucleated RBC % Immature Gran # Nucleated RBCs # Sodium Potassium Chloride Carbon Dioxide Anion Gap BUN Creatinine GFR Calculation BUN/Creatinine Ratio Glucose POC Glucose Calculated Osmolality Calcium Magnesium Total Creatine Kinase 36 L CK-MB (CK-2) 1.8 Troponin I < 0.015 Blood Type A POSITIVE Antibody Screen Negative Crossmatch See Detail 08/10/16 08/11/16 08/11/16 19:06 01:12 04:56 WBC 10.8 D RBC 3.15 L Hgb 9.2 L D 9.5 L Hct 26.9 L 28.2 L MCV 89.5 MCH 30 MCHC 33.7 RDW 13.1 Plt Count 193 MPV 10.0 Neut % (Auto) 78.6 H Lymph % (Auto) 14.6 L [place] % (Auto) 6.1 Eos % (Auto) 0.1 Baso % (Auto) 0.1 Neut # (Auto) 8.5 H Lymph # (Auto) 1.6 [place] # (Auto) 0.7 Eos # (Auto) 0.0 Baso # (Auto) 0.0 Immature Gran % 0.5 Nucleated RBC % 0.0 Immature Gran # 0.05 Nucleated RBCs # 0.00 Sodium Potassium Chloride Carbon Dioxide Anion Gap BUN Creatinine GFR Calculation BUN/Creatinine Ratio Glucose POC Glucose Calculated Osmolality Calcium Magnesium Total Creatine Kinase CK-MB (CK-2) Troponin I Blood Type A POSITIVE Antibody Screen Crossmatch 08/11/16 04:56 WBC RBC Hgb Hct MCV MCH MCHC RDW Plt Count MPV Neut % (Auto) Lymph % (Auto) [place] % (Auto) Eos % (Auto) Baso % (Auto) Neut # (Auto) Lymph # (Auto) [place] # (Auto) Eos # (Auto) Baso # (Auto) Immature Gran % Nucleated RBC % Immature Gran # Nucleated RBCs # Sodium 141 Potassium 4.0 Chloride 109 H Carbon Dioxide 23 Anion Gap 13.0 BUN 26 H Creatinine 0.80 GFR Calculation 106 BUN/Creatinine Ratio 32.00 H Glucose 101 POC Glucose Calculated Osmolality 285.3 Calcium 7.8 L Magnesium 1.8 Total Creatine Kinase CK-MB (CK-2) Troponin I Blood Type Antibody Screen Crossmatch - Impressions Impressions: Telemetry with normal sinus rhythm.
[2016-08-11] MEDS: CARVEDILOL 6.25 MG TABLET PO SCH ×2 (09:11→20:27)
[2016-08-11] MEDS: PANTOPRAZOLE 40 MG VIAL IV SCH ×2 (09:11→20:27)
[2016-08-11] MEDS: SUCRALFATE 1 GM TABLET PO SCH ×4 (09:11→20:27)
[2016-08-11] MEDS: LISINOPRIL 10 MG TABLET PO SCH (09:11)
--- NOTE | 2016-08-11 09:39 | EKG Report ---
Stationary ECG Study [facility] Test Date: 08/10/2016 2:15:47 PM Pat Name: MARLA CORTES Department: Room: 112 Gender: M [employer]: : [id number] Requested by: Jayme Valdez Order Number: [id number] Reading MD: LILIANA MICHELLE Intervals [place] Rate: 100 P: 45 [place]: 146 QRS: -75 QRSD: 139 T: 59 QT: 381 QTc: 438 Interpretive Statements SINUS TACHYCARDIA WITH OCCASIONAL VENTRICULAR PREMATURE COMPLEXES RIGHT BUNDLE BRANCH BLOCK LEFT ANTERIOR FASCICULAR BLOCK Electronically Signed On 08-13-16 16:22:22 CDT by LILIANA MICHELLE [email or web address]
--- NOTE | 2016-08-11 10:25 | Hospitalist Progress Note ---
Assessment and Plan (1) Near syncope Status: Resolved Assessment and plan: This 76-year-old gentleman was admitted to the hospital medicine department 511 with a near syncopal event. Telemetry monitoring has been without any arrhythmias. Had an event of syncope again. Did have GI bleed that has been taken care of with upper endoscopy and subsequent cauterization of bleeding vessel. Developed tachyarrhythmias yesterday and was brought to the intensive care unit for observation. Was noted to have dropped his hematocrit and has received 2 units of packed cells H&H as of now is optimal Current Visit: Yes (2) Chest pain Status: Resolved Assessment and plan: No chest pain this morning had some during the hospital stay Current Visit: Yes (3) Upper gastrointestinal bleeding Status: Acute Assessment and plan: As above patient has had endoscopy cautery of a bleeding vessel. From the look of things H&H is remaining stable continue to observe hospital for the next 6- 12 hours. We need to be report of the abdomen moved upstairs. Check H&H every 6 hours Current Visit: Yes Hospitalist: Subjective Interval history: Patient has been seen interviewed and examined chart has been reviewed. Brought to the intensive care unit yesterday after endoscopy with cauterization of a bleeding blood vessel. Patient has received 2 units of packed cells subsequent H&H is pending. Blood pressures are optimal at this time. Heart rate is below 100. Sinus control. Exam - Constitutional Vitals: Period Temp Pulse Resp BP Sys/Portillo Pulse Ox Last 24 Hr 97.6 F-101.2 F 93-127 12-26 89-194/51-116 92-99 General appearance: normal weight, no acute distress - Head Head exam: Present: normal inspection, atraumatic - Eye Eye exam: Present: EOMI Pupils: Present: FLACA - ENT ENT exam: Present: normal exam - Neck Neck exam: Present: normal inspection - Respiratory Respiratory exam: Present: clear to auscultation bilaterally - Cardiovascular Cardiovascular exam: Present: regular rate and rhythm - GI/Abdominal GI/Abdominal exam: Present: normal bowel sounds, soft - Extremities Exam Extremities exam: Present: full ROM - Back Exam Back exam: Present: normal inspection - Neurological Exam Neurological exam: Present: alert, oriented X3, CN II-XII intact - Psychiatric Psychiatric exam: Present: normal affect, normal mood - Skin Skin exam: Present: normal color, warm, dry Results - Labs CBC & BMP: 08/11/16 04:56 08/11/16 04:56 Lab Results: I have reviewed the past 24 hour labs (H&H current over 9.5 and 28.2. Subsequent H&H is pending)
[2016-08-11 10:46] LABS: Hematocrit 34.7 VOL% (42.0-52.0); Hemoglobin 11.8 GM/DL (14.0-18.0)
[2016-08-11 13:10] LABS: Hematocrit 34.6 VOL% (42.0-52.0); Hemoglobin 11.6 GM/DL (14.0-18.0)
[2016-08-11] MEDS: SODIUM CHLORIDE 0.9% 1,000 ML IV SCH ×2 (14:00→20:17)
[2016-08-11 19:42] LABS: Hematocrit 32.9 VOL% (42.0-52.0); Hemoglobin 11.1 GM/DL (14.0-18.0)
[2016-08-11] MEDS: LEVOFLOXACIN INJ 750 MG in PREMIX 1 EACH IV SCH (20:26)
[2016-08-12 01:45] LABS: Basophils % 0.3 % (0.0-0.8); Eosinophils # 0.2 10*3/uL (0.0-0.87); Eosinophils % 2.6 % (0.00-10.9); Hematocrit 30.9 VOL% (42.0-52.0); Hemoglobin 10.6 GM/DL (14.0-18.0); Immature Granulocytes % 0.3 %; Immature Granulocytes Absolute 0.02 #; Lymphocytes # 1.6 10*3/uL (1.4-4.0); Lymphocytes % 21.2 % (21.2-54.2); Mean Corpuscular HGB Conc 34.3 GM/DL (32-36); Mean Corpuscular Hemoglobin 30 PG (27-34); Monocytes # 0.6 10*3/uL (0.11-0.8); Neutrophils # 5.2 10*3/uL (1.4-7.4); Neutrophils % 67.6 % (38.7-73.9); Platelet Count 203 T/CUMM (130-400); Red Blood Count 3.51 MC/CUMM (3.8-5.5); Red Cell Distribution Width 13.2 % (9.3-17.3); White Blood Count 7.7 T/CUMM (4-12)
[2016-08-12 02:02] LABS: Calcium 8.1 MG/DL (8.5-10.1); Magnesium 1.8 MG/DL (1.8-2.4); Osmolality,Calculated 282.3 MOS/KG (273-304); Potassium 4.3 MMOL/L (3.5-5.1)
[2016-08-12] MEDS: SODIUM CHLORIDE 0.9% 1,000 ML IV SCH (06:17)
[2016-08-12 07:29] LABS: Hematocrit 30.7 VOL% (42.0-52.0); Hemoglobin 10.8 GM/DL (14.0-18.0)
[2016-08-12] MEDS: SUCRALFATE 1 GM TABLET PO SCH ×4 (07:44→20:43)
[2016-08-12] MEDS: LISINOPRIL 10 MG TABLET PO SCH (08:56)
[2016-08-12] MEDS: CARVEDILOL 6.25 MG TABLET PO SCH ×2 (08:56→20:43)
[2016-08-12] MEDS ORDERED: PANTOPRAZOLE 40 MG TABLET PO SCH (09:00)
--- NOTE | 2016-08-12 09:37 | Hospitalist Progress Note ---
Assessment and Plan (1) Near syncope Status: Resolved Assessment and plan: This 76-year-old gentleman was admitted to the [facility] medicine department with a near syncopal event. Telemetry monitoring has been without any arrhythmias. Did have GI bleed that has been taken care of with upper endoscopy and subsequent cauterization of bleeding vessel. Developed tachyarrhythmias yesterday and was brought to the intensive care unit for observation. Was noted to have dropped his hematocrit and has received 2 units of packed cells H&H as of now is optimal. The last 24 hours and obtain an care of family has had no active bleeding. He is H&H has maintained. Vital signs are normal. No arrhythmias. Transferring him to [facility] Current Visit: Yes (2) Chest pain Status: Resolved Assessment and plan: No chest pain this morning had some during the hospital stay Current Visit: Yes (3) Upper gastrointestinal bleeding Status: Acute Assessment and plan: As above patient has had endoscopy cautery of a bleeding vessel. No active bleeding in the last 24 hours. Patient will be going to [facility]. Change H&H to q. morning. Current Visit: Yes Hospitalist: Subjective Interval history: She has been seen interviewed and examined and chart has been. No acute complaints today. He is not in any distress. His hematocrit is maintained. Latest measurement is hemoglobin of 10.8 hematocrit of 30.7. No active bleeding. Just had a bowel movement no blood in it. Exam - Constitutional Vitals: Period Temp Pulse Resp BP Sys/Portillo Pulse Ox Last 24 Hr 98.3 F-98.8 F 84-96 12-22 108-158/66-97 92-98 General appearance: normal weight - Head Head exam: Present: normocephalic, atraumatic - Eye Eye exam: Present: EOMI Pupils: Present: FLACA - ENT ENT exam: Present: normal exam - Neck Neck exam: Present: normal inspection - Respiratory Respiratory exam: Present: clear to auscultation bilaterally, other (No rales no wheezing) - Cardiovascular Cardiovascular exam: Present: regular rate and rhythm - GI/Abdominal GI/Abdominal exam: Present: normal bowel sounds, soft, other (No guarding no tenderness) - Extremities Exam Extremities exam: Present: normal inspection, normal capillary refill, full ROM , other (No edema no cyanosis) - Back Exam Back exam: Present: normal inspection - Neurological Exam Neurological exam: Present: alert, oriented X3, CN II-XII intact - Psychiatric Psychiatric exam: Present: normal affect, normal mood - Skin Skin exam: Present: normal color, warm, dry Results - Labs CBC & BMP: 08/12/16 07:21 08/12/16 01:19 Lab Results: I have reviewed the past 24 hour labs (Stable H&H)
[2016-08-12] MEDS: LEVOFLOXACIN INJ 750 MG in PREMIX 1 EACH IV SCH (18:02)
[2016-08-12] MEDS: PANTOPRAZOLE 40 MG TABLET PO SCH (20:44)
[2016-08-13 04:47] LABS: Basophils % 0.3 % (0.0-0.8); Eosinophils # 0.2 10*3/uL (0.0-0.87); Eosinophils % 3.1 % (0.00-10.9); Hematocrit 30.5 VOL% (42.0-52.0); Hemoglobin 10.4 GM/DL (14.0-18.0); Immature Granulocytes % 0.3 %; Immature Granulocytes Absolute 0.02 #; Lymphocytes # 1.7 10*3/uL (1.4-4.0); Lymphocytes % 25.7 % (21.2-54.2); Mean Corpuscular HGB Conc 34.1 GM/DL (32-36); Mean Corpuscular Hemoglobin 30 PG (27-34); Mean Corpuscular Volume 87.1 FL (87-102); Mean Platelet Volume 9.8 FL (9.6-12.0); Monocytes # 0.6 10*3/uL (0.11-0.8); Monocytes % 8.7 % (1.7-12.7); Neutrophils % 61.9 % (38.7-73.9); Platelet Count 200 T/CUMM (130-400); Red Cell Distribution Width 12.8 % (9.3-17.3); White Blood Count 6.5 T/CUMM (4-12)
[2016-08-13 05:27] LABS: Calcium 8.2 MG/DL (8.5-10.1); Osmolality,Calculated 281.1 MOS/KG (273-304); Potassium 3.7 MMOL/L (3.5-5.1)
[2016-08-13] MEDS: LISINOPRIL 10 MG TABLET PO SCH (09:31)
[2016-08-13] MEDS: CARVEDILOL 6.25 MG TABLET PO SCH (09:31)
[2016-08-13] MEDS: PANTOPRAZOLE 40 MG TABLET PO SCH (09:31)
[2016-08-13] MEDS: SUCRALFATE 1 GM TABLET PO SCH ×2 (09:31→11:58)
--- NOTE | 2016-08-13 10:37 | Discharge Summary ---
Hospital Course - Hospital Course Hospital Course: This is a very pleasant 76 year old Male that presented to the ED at [facility] on 08/09 with a chief complaint of diaphoresis and near syncope. The patient has a rather impressive medical history significant for hypertension, gouty arthritis, and carcinoma of the prostate. He reported the onset of the above complaints while at work today. 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 In addition, he reported feeling weak and "nearly passing out"; however never loss consciousness. At the time of presentation, a full cardiac work-up was performed ; which was essentially unremarkable. During the ED encounter, the patient verbalized complaint of left sided chest pain; in which he was given Nitroglycerin and the pain quickly subsided. The patient also experienced an episode of nausea and vomiting in which he had an dark red emesis was noted.An additional EKG was obtained which was positive for a possible right bundle branch block. The patient was subsequently admitted under the hospitalist service for further evaluation. A cardiology and gastroenterology consult was requested. He was evaluated by Cardiology. His medications were reviewed and adjusted and his condition improved. He was seen by gastroenterology and evaluated. On , he underwent esophagogastroduodenoscopy, which revealed acute peptic ulcer disease likely secondary to nonsteroidal use. His condition has improved and no further episodes of hematemesis was been noted. Today, we feel that he is appropriate for discharge home to follow-up with his PCP as directed. Discharge Plan - Discharge Medications No Action Lisinopril 20 mg PO DAILY Hydrocodone/Acetaminophen [Hydrocodon-Acetaminophn 10-325] 1 each PO TID PRN MDD 3GM/24H APAP PRN Reason: Pain Sulindac 200 mg PO BID Omeprazole 20 mg PO DAILY Allopurinol 300 mg PO DAILY - Follow Up or Referral - Forms/Instructions Exam - Constitutional Vitals: Period Temp Pulse Resp BP Sys/Portillo Pulse Ox Last 24 Hr 97.2 F-98.8 F 85-90 18-20 139-164/75-85 95-100 Discharge Results Procedures and tests throughout hospitalization: Pending Orders 08/09/16 16:15 Occult Blood, Stool Routine Labs on day of discharge: Labs from last 24 hours 08/13/16 08/13/16 04:25 04:25 WBC 6.5 RBC 3.50 L Hgb 10.4 L Hct 30.5 L MCV 87.1 MCH 30 MCHC 34.1 RDW 12.8 Plt Count 200 MPV 9.8 Neut % (Auto) 61.9 Lymph % (Auto) 25.7 Brooks % (Auto) 8.7 Eos % (Auto) 3.1 Baso % (Auto) 0.3 Neut # (Auto) 4.0 Lymph # (Auto) 1.7 Brooks # (Auto) 0.6 Eos # (Auto) 0.2 Baso # (Auto) 0.0 Immature Gran % 0.3 Nucleated RBC % 0.0 Immature Gran # 0.02 Nucleated RBCs # 0.00 Sodium 142 Potassium 3.7 Chloride 106 Carbon Dioxide 26 Anion Gap 13.7 BUN 11 Creatinine 0.80 GFR Calculation 106 BUN/Creatinine Ratio 13.00 Glucose 97 Calculated Osmolality 281.1 Calcium 8.2 L Magnesium 2.0 DS: Provider Date of admission: 08/09/16 13:40 Primary care physician: . No PCP Attending physician on admission: Martin Loco MD Consults: 08/09/16 16:30 Consult to Physician [CONS] Routine Comment: Consulting Provider: Cardiology - [facility] When should Consulting Provider be notified: Now Person Notified: VENECIA Date Notified: 08/10/16 Time Notified: 07:34 08/09/16 20:25 Consult to Physician [CONS] Routine Comment: Upper GI bleed Consulting Provider: Jonathon Munoz Person Notified: Miguelina Date Notified: 08/10/16 Time Notified: 08:05 08/10/16 10:48 Consult to Dietitian [CONS] Routine Reason for Dietitian: Diet Recommendations Diet Instruction Discharging clinician: Ángel Stewart CNP
--- NOTE | 2016-08-13 10:50 | Gastrointestinal Progress Note ---
<JorgephilippbreannaJigna Manuela - Last Filed: 08/13/16 10:47> Assessment and Plan (1) Melena Status: Acute Assessment and plan: 08/13-No bleeding, hemoglobin is holding at 10.4. For discharge home today. Plan and addendum to follow by DR Munoz. 08/10-2 day history of dark runny watery stools with associated epigastric pain and nausea and vomiting with reports of hematemesis in the emergency room. Drop in hemoglobin from 14-11 since admission. Plan for EGD today to further evaluate. Plan an addendum to follow by Dr. Munoz peer Gastroenterology - PN: Subj Interval history: CC: PUD Pt is seen awake and alert sitting up in chair. States he is feeling better today. He denies any abdominal pain, nausea or vomiting. He is tolerating his diet well. He states his stools are normal now and now further melena. Abdomen is soft, nontender. Hemoglobin is stable at 10.4. He is for discharge home today. ROS: Denies SOB or chest pain Exam (Progress Note) - Constitutional Vitals: Period Temp Pulse Resp BP Sys/Portillo Pulse Ox Last 24 Hr 97.2 F-98.8 F 85-90 18-20 139-164/75-85 95-100 General appearance: normal weight, no acute distress - Head Head exam: Present: normal inspection, normocephalic - Eye Eye exam: Present: other (lids and conjunctiva unremarkable). Absent: scleral icterus - ENT ENT exam: Present: normal exam, normal oropharynx - Neck Neck exam: Present: normal inspection - Respiratory Respiratory exam: Present: clear to auscultation bilaterally. Absent: rales, rhonchi, wheezes - Cardiovascular Cardiovascular exam: Present: regular rate and rhythm. Absent: diastolic murmur , JVD, systolic murmur - GI/Abdominal GI/Abdominal exam: Present: normal bowel sounds, soft. Absent: ascites, distended, mass, organomegaly, tenderness - Extremities Exam Extremities exam: Present: normal inspection, full ROM - Back Exam Back exam: Present: normal inspection - Neurological Exam Neurological exam: Present: alert, oriented X3 - Psychiatric Psychiatric exam: Present: normal affect, normal mood - Skin Skin exam: Present: normal color, warm, dry Results - Labs CBC & BMP: 08/13/16 04:25 08/13/16 04:25 Lab Results: I have reviewed the past 24 hour labs Specialty Discharge - Follow Up or Referrals Follow up with: Jonathon Munoz MD [Physician] - 09/24/16 8:30 am (6 weeks with EGD AT [facility] AT 8:30 AM NOTHING TO EAT OR DRINK AFTER MIDNIGHT PRIOR TO SCOPE. ALSO BRING A GROUND INTELLIGENCE OFFICER WITH YOU.) <Jonathon Munoz - Last Filed: 08/13/16 18:34> Exam (Progress Note) - Constitutional Vitals: Period Temp Pulse Resp BP Sys/Portillo Pulse Ox Last 24 Hr 98.5 F-98.8 F 85-97 18-20 131-164/73-85 95-100 Results - Labs CBC & BMP: 08/13/16 04:25 08/13/16 04:25
[2016-08-13 12:08] VITALS: BP 131/73
--- NOTE | 2016-08-13 12:48 | Discharge Summary ---
Hospital Course - Hospital Course Hospital Course: Hospital Course - Hospital Course Hospital Course: This is a very pleasant 76 year old Male that presented to the ED at [facility] on 08/09 with a chief complaint of diaphoresis and near syncope. The patient has a rather impressive medical history significant for hypertension, gouty arthritis, and carcinoma of the prostate. He reported the onset of the above complaints while at work today. 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 In addition, he reported feeling weak and "nearly passing out"; however never loss consciousness. At the time of presentation, a full cardiac work-up was performed ; which was essentially unremarkable. During the ED encounter, the patient verbalized complaint of left sided chest pain; in which he was given Nitroglycerin and the pain quickly subsided. The patient also experienced an episode of nausea and vomiting in which he had an dark red emesis was noted.An additional EKG was obtained which was positive for a possible right bundle branch block. The patient was subsequently admitted under the hospitalist service for further evaluation. A cardiology and gastroenterology consult was requested. He was evaluated by Cardiology. His medications were reviewed and adjusted and his condition improved. He was seen by gastroenterology and evaluated. On , he underwent esophagogastroduodenoscopy, which revealed acute peptic ulcer disease likely secondary to nonsteroidal use. His condition has improved and no further episodes of hematemesis was been noted. Today, we feel that he is appropriate for discharge home to follow-up with his PCP as directed. Discharge Plan - Discharge Medications No Action Lisinopril 20 mg PO DAILY Hydrocodone/Acetaminophen [Hydrocodon-Acetaminophn 10-325] 1 each PO TID PRN MDD 3GM/24H APAP PRN Reason: Pain Sulindac 200 mg PO BID Omeprazole 20 mg PO DAILY Allopurinol 300 mg PO DAILY - Follow Up or Referral - Forms/Instructions Exam - Constitutional Vitals: Period Temp Pulse Resp BP Sys/Portillo Pulse Ox Last 24 Hr 97.2 F-98.8 F 85-90 18-20 139-164/75-85 95-100 Discharge Results Procedures and tests throughout hospitalization: Pending Orders 08/09/16 16:15 Occult Blood, Stool Routine Labs on day of discharge: Labs from last 24 hours 05/15/17 05/15/17 04:25 04:25 WBC 6.5 RBC 3.50 L Hgb 10.4 L Hct 30.5 L MCV 87.1 MCH 30 MCHC 34.1 RDW 12.8 Plt Count 200 MPV 9.8 Neut % (Auto) 61.9 Lymph % (Auto) 25.7 [place] % (Auto) 8.7 Eos % (Auto) 3.1 Baso % (Auto) 0.3 Neut # (Auto) 4.0 Lymph # (Auto) 1.7 [place] # (Auto) 0.6 Eos # (Auto) 0.2 Baso # (Auto) 0.0 Immature Gran % 0.3 Nucleated RBC % 0.0 Immature Gran # 0.02 Nucleated RBCs # 0.00 Sodium 142 Potassium 3.7 Chloride 106 Carbon Dioxide 26 Anion Gap 13.7 BUN 11 Creatinine 0.80 GFR Calculation 106 BUN/Creatinine Ratio 13.00 Glucose 97 Calculated Osmolality 281.1 Calcium 8.2 L Magnesium 2.0 DS: Provider Date of admission: 08/09/16 13:40 Primary care physician: . No PCP Attending physician on admission: Martin Loco MD Consults: 08/09/16 16:30 Consult to Physician [CONS] Routine Comment: Consulting Provider: Cardiology - [facility] When should Consulting Provider be notified: Now Person Notified: [facility] Date Notified: 08/10/16 Time Notified: 07:34 08/09/16 20:25 Consult to Physician [CONS] Routine Comment: Upper GI bleed Consulting Provider: Jonathon Munoz Person Notified: Miguelina Date Notified: 08/10/16 Time Notified: 08:05 08/10/16 10:48 Consult to Dietitian [CONS] Routine Reason for Dietitian: Diet Recommendations Diet Instruction Discharging clinician: Ángel Stewart CNP Diagnosis - Discharge Diagnosis (1) Near syncope Status: Resolved (2) Chest pain Status: Resolved (3) Upper gastrointestinal bleeding Status: Acute Discharge Plan - Discharge Data Disposition: Disch To Home/Self Care Condition at Discharge: Stable Discharge Diet: heart healthy Activity: resume usual activities as tolerated Hygiene: no restrictions Weight Bearing at Discharge: full weight bearing Contact your physician if you experience:: Difficulty voiding, Nausea/Vomiting, Bleeding - Discharge Medications New Nitroglycerin Sl Tab [Nitrostat] 0.4 mg SL Q5M PRN #30 tablet PRN Reason: Chest Pain Carvedilol [Coreg] 6.25 mg PO BID #60 tablet Sucralfate Tab [Carafate Tab] 1 gm PO ACHS #90 tablet Continue Lisinopril 20 mg PO DAILY Hydrocodone/Acetaminophen [Hydrocodon-Acetaminophn 10-325] 1 each PO TID PRN MDD 3GM/24H APAP PRN Reason: Pain Omeprazole 20 mg PO DAILY Allopurinol 300 mg PO DAILY Discontinued Sulindac 200 mg PO BID - Follow Up or Referral - Forms/Instructions Exam - Constitutional Vitals: Period Temp Pulse Resp BP Sys/Portillo Pulse Ox Last 24 Hr 98.1 F-98.8 F 85-97 18-20 131-164/73-85 95-100 General appearance: normal weight - Head Head exam: Present: normal inspection, normocephalic - Eye Eye exam: Present: EOMI Pupils: Present: FLACA - ENT ENT exam: Present: normal external ear exam - Neck Neck exam: Present: normal inspection - Respiratory Respiratory exam: Present: clear to auscultation bilaterally - Cardiovascular Cardiovascular exam: Present: regular rate and rhythm - GI/Abdominal GI/Abdominal exam: Present: normal bowel sounds, soft - Extremities Exam Extremities exam: Present: normal inspection - Neurological Exam Neurological exam: Present: alert, oriented X3, CN II-XII intact - Psychiatric Psychiatric exam: Present: normal affect, normal mood - Skin Skin exam: Present: normal color, warm, dry Discharge Results Procedures and tests throughout hospitalization: Pending Orders 08/09/16 16:15 Occult Blood, Stool Routine Labs on day of discharge: Labs from last 24 hours 08/13/16 08/13/16 04:25 04:25 WBC 6.5 RBC 3.50 L Hgb 10.4 L Hct 30.5 L MCV 87.1 MCH 30 MCHC 34.1 RDW 12.8 Plt Count 200 MPV 9.8 Neut % (Auto) 61.9 Lymph % (Auto) 25.7 [place] % (Auto) 8.7 Eos % (Auto) 3.1 Baso % (Auto) 0.3 Neut # (Auto) 4.0 Lymph # (Auto) 1.7 [place] # (Auto) 0.6 Eos # (Auto) 0.2 Baso # (Auto) 0.0 Immature Gran % 0.3 Nucleated RBC % 0.0 Immature Gran # 0.02 Nucleated RBCs # 0.00 Sodium 142 Potassium 3.7 Chloride 106 Carbon Dioxide 26 Anion Gap 13.7 BUN 11 Creatinine 0.80 GFR Calculation 106 BUN/Creatinine Ratio 13.00 Glucose 97 Calculated Osmolality 281.1 Calcium 8.2 L Magnesium 2.0 DS: Provider Date of admission: 08/09/16 13:40 Primary care physician: . No PCP Attending physician on admission: Martin Loco MD Consults: 08/09/16 16:30 Consult to Physician [CONS] Routine Comment: Consulting Provider: Cardiology - [facility] When should Consulting Provider be notified: Now Person Notified: [facility] Date Notified: 08/10/16 Time Notified: 07:34 08/09/16 20:25 Consult to Physician [CONS] Routine Comment: Upper GI bleed Consulting Provider: Jonathon Munoz Person Notified: Miguelina Date Notified: 08/10/16 Time Notified: 08:05 08/10/16 10:48 Consult to Dietitian [CONS] Routine Reason for Dietitian: Diet Recommendations Diet Instruction Discharging clinician: Jayme Valdez MD
== END 2016-08-13 14:50 | disposition home or self-care (01) | DRG 379 ==
LOC: N.ED 11:36 → N.EDINP 13:40 → SUATTDRO 13:40 → N.TELES 14:02 → N.ICU 08-10 18:19 → N.TELEN 08-12 09:52
PROVIDERS: ADMIT Family Medicine; ATTEND Internal Medicine Infectious Disease